=== PATIENT | female | born 2000 | race Caucasian/White ===

== ENCOUNTER 2023-05-16 12:24 | Emergency (ER) | payer OTHER ==
[~2023-05-16] VITALS: Ht 167.6 cm; Wt 66.2 kg
[2023-05-16] MEDS ORDERED: RAYOS2 MG PO (12:38)
[2023-05-16] MEDS ORDERED: HYDROXYCHLOROQ200 MG PO (12:39)
[2023-05-16] MEDS ORDERED: DIALYVITE TABL1 EACH PO (12:39)
[2023-05-16] MEDS ORDERED: ADULT LOW DOSE81 M1 PO (12:40)
== END 2023-05-16 15:26 | disposition home or self-care (01) ==
LOC: ER 12:24
DX: O99.513 Diseases of the respiratory system complicating pregnancy, third trimester (principal); Z3A.30 30 weeks gestation of pregnancy; J06.9 Acute upper respiratory infection, unspecified; O24.013 Pre-existing type 1 diabetes mellitus, in pregnancy, third trimester; L93.0 Discoid lupus erythematosus; Z20.822 Contact with and (suspected) exposure to COVID-19; Z88.8 Allergy status to other drugs, medicaments and biological substances; Z91.013 Allergy to seafood

== ENCOUNTER 2023-07-09 14:24 | Outpatient (CLI) | payer OTHER ==
[~2023-07-09 14:24] MED LIST: ADULT LOW DOSE81 M1 PO; DIALYVITE TABL1 EACH PO; HYDROXYCHLOROQ200 MG PO; RAYOS2 MG PO
== END 2023-07-09 15:09 | disposition home or self-care (01) ==
LOC: OBS/DEL 14:24
PROVIDERS: ATTEND Specialist
DX: O26.893 Other specified pregnancy related conditions, third trimester (principal); Z3A.37 37 weeks gestation of pregnancy; W18.39XA Other fall on same level, initial encounter; Y93.89 Activity, other specified; Y92.89 Other specified places as the place of occurrence of the external cause; Y99.8 Other external cause status; Z88.1 Allergy status to other antibiotic agents; Z91.041 Radiographic dye allergy status; Z91.013 Allergy to seafood

== ENCOUNTER 2023-07-12 14:01 | Inpatient (IN) | payer OTHER ==
[~2023-07-12] VITALS: Ht 165.1 cm; Wt 3.2 kg
[2023-07-12] MEDS ORDERED: PRENATAL TABLE1 EAC1 PO (15:42)
[2023-07-12] MEDS ORDERED: HUMALOG100 UNIT/2 (15:42)
== END 2023-07-15 14:12 | disposition home or self-care (01) | DRG 786 ==
LOC: LDR 14:01 → O/R 14:01 → OB/GYN 14:01 → O/R 07-13 09:11 → OB/GYN 07-13 09:51
PROVIDERS: ADMIT Specialist; ATTEND Specialist
PROC: 4A1HXCZ Monitoring of Products of Conception, Cardiac Rate, External Approach (ICD-10-PCS; 2023-07-12)
PROC: 10D00Z1 Extraction of Products of Conception, Low, Open Approach (ICD-10-PCS; principal; 2023-07-13 08:15)
DX: O32.2XX0 Maternal care for transverse and oblique lie, not applicable or unspecified (principal); O24.02 Pre-existing type 1 diabetes mellitus, in childbirth; D68.62 Lupus anticoagulant syndrome; O99.12 Other diseases of the blood and blood-forming organs and certain disorders involving the immune mechanism complicating childbirth; E10.8 Type 1 diabetes mellitus with unspecified complications; Z3A.38 38 weeks gestation of pregnancy; Z37.0 Single live birth; Z79.4 Long term (current) use of insulin; Z20.822 Contact with and (suspected) exposure to COVID-19